=== PATIENT | male | born 1945 | race Caucasian/White ===

== ENCOUNTER 2020-02-22 09:50 | Outpatient (CLI) | payer MEDICARE, OTHER, SELFPAY ==
--- NOTE | 2020-02-22 10:02 | CT_ITS ---
WS: [id number] CT ABDOMEN PELVIS TECHNIQUE: Contrast-enhanced CT of the abdomen and pelvis with coronal and sagittal reformatted image s. CLINICAL INFORMATION: ABDOMINAL PAIN, DIARRHEA, CONSTIPATION COMPARISON: None. DLP: 1247.[address] scans at [facility] use at least one of these dose optimization techniques: automat ed exposure control; mA and/or kV adjustment per patient size (includes targeted exams where dose is matched to clinical indication); or iterative reconstruction. FINDINGS: Diffuse fatty infiltration of the liver. Normal portal vein and splenic vein. Normal gallbladder. Nor mal splenic enhancement. Normal GE junction. Lung bases are well aerated. Pancreas is normal in appea serjio. No intrahepatic biliary ductal dilatation. Normal caliber abdominal aorta. Mild aortic calcifi cation. Adrenal glands are normal. Bilateral renal cortical atrophy. No hydronephrosis. Left renal cyst measu ring 2.1cm. No obstructing renal or ureteral calculi. Mild sigmoid constipation. Normal caliber small and large bowel. No evidence of small or large bowel obstruction. Fat-containing left inguinal hernia. Prostate brachytherapy seeds. No free fluid in the abdomen or pelvis. No periaortic or retroperitoneal lymphadenopathy. Disc space narrowing L4-5 and L 5-S1 vacuum disc phenomenon. CT/CT abdomen pelvis w con* [id number] IMPRESSION: 1. Prostate brachytherapy seeds. 2. Mild constipation in the sigmoid colon. Small and large bowel are otherwise unremarkable in appearance. No evidence of small or large bowel obstruction.0 3. Diffuse fatty infiltration of the liver. Normal gallbladder. 4. Bilateral renal cortical atrophy. Left renal cyst measuring 2.1 cm. 5. Normal caliber abdominal aorta. 6. No abdominal or pelvic lymphadenopathy. 7. Fat-containing left inguinal hernia.
[2020-02-22] MEDS: iohexol 300 mg/mL 50 mL Btl PO (11:07)
[2020-02-22 11:33] LABS: Blood Urea Nitrogen 17 mg/dL (8-23)
[2020-02-22] MEDS: iodixanol 320 mg/mL 100mL Btl IV (11:40)
== END 2020-02-22 09:51 | disposition home or self-care (01) ==
LOC: RADWPI 09:59
PROVIDERS: Family Provider Electrodiagnostic Medicine; PCP Electrodiagnostic Medicine; Visit Provider Electrodiagnostic Medicine
DX: R10.9 Unspecified abdominal pain (principal); K52.9 Noninfective gastroenteritis and colitis, unspecified; K59.00 Constipation, unspecified; K76.0 Fatty (change of) liver, not elsewhere classified; N26.1 Atrophy of kidney (terminal); N28.1 Cyst of kidney, acquired; K40.90 Unilateral inguinal hernia, without obstruction or gangrene, not specified as recurrent
CPT/HCPCS: 74177; 82565; 84520; Q9967

== ENCOUNTER 2020-02-29 04:01 | Emergency (ER) | payer MEDICARE, OTHER, SELFPAY ==
[2020-02-29 04:12] VITALS: BP 168/98; PULSE 89; RESP 22; TEMP 36.5; O2SAT 97; BMI 29.2
--- NOTE | 2020-02-29 04:15 | W.ED.GENADLT ---
HPI - General Adult General: Chief complaint: General Medical Stated complaint: THROAT SWELLING Time Seen by Provider: 02/29/20 04:10 History of Present Illness: HPI narrative: Mr. Gutierrez is a very nice 74-year-old male comes in with painful difficulty swallowing. His symptoms have been present since last night. He states he has had a similar symptoms in the past and after he was given some IV Benadryl his symptoms improved greatly. The patient denies any fevers or chills. He denies any other complaints at this time. Associated symptoms: Deny chest pain, confusion, diaphoresis, dyspnea, headache(s), malaise, nausea, rash, palpitations, syncope or vomiting Review of Systems General: Reports: other (negative unless marked) Const: Denies: fever, chills, body aches, fatigue, malaise or diaphoresis Eyes: Denies: change in vision or blurry vision ENMT: Denies: hoarseness, ear pain, ear discharge, Change in hearing or nasal discharge Card: Denies: chest pain, palpitations, irregular heart rhythm, syncope, pre-syncope, shortness of breath on exertion or shortness of breath when lying down Resp: Denies: shortness of breath, productive cough, non-productive cough, wheezing, coughing up blood or chest congestion GI: Denies: abdominal pain, nausea, vomiting, vomiting blood, coffee grounds in vomit, diarrhea, constipation, cramping, blood in stool or black tarry stool : Denies: flank pain, difficulty urinating, painful urination, urinary frequency, urinary urgency, decreased urine ouput, urinary incontinence or blood in urine Musc: Denies: neck pain, back pain, extremity pain, extremity swelling, joint pain, joint swelling, joint warmth or joint stiffness Skin/Breast: Denies: rash, skin tenderness or yellow skin Neuro: Denies: headache, numbness in extremities, weakness in extremities, changes in sensation, lack of coordination, difficulty walking, dizziness, vertigo or confusion Endo: Denies: excessive thirst, tired all the time, cold intolerance, excessive sweating, flushing or hot flashes Tito/Lymph: Denies: easy bruising, easy bleeding, petechiae or enlarged lymph nodes All/Imm: Denies: hives, throat swelling, tongue swelling, facial swelling or acute wheezing PFSH ED PFSH: Social History Smoking and tobacco status: former smoker Physical Exam Const: COMMON NORMALS: no apparent distress, oriented x3, no limitations, healthy appearing and well nourished EXAM LIMITATIONS: no altered mental status GENERAL APPEARANCE: cooperative, well kempt and well developed ORIENTATION/CONSCIOUSNESS: Yes awake HENMT: COMMON NORMALS: normocephalic, head/scalp atraumatic, hearing grossly normal bilaterally, external ears normal, EAC's normal, external nose normal and moist oral mucous membranes HEAD & SCALP: normal to inspection, normocephalic and atraumatic FACE & SINUS: normal facial exam and face symmetric NOSE: external nose normal and nares normal EXTERNAL EAR: Yes external ears normal EXTERNAL AUDITORY CANAL: EAC's normal MOUTH: tongue normal and other (Uvular edema?mild) Eye: COMMON NORMALS: PERRL, EOMs intact bilaterally, conjunctivae normal and no scleral icterus GENERAL EYE: normal appearance of both eyes and normal light reflex CONJUNCTIVA: Yes conjunctivae normal SCLERA: sclerae normal CORNEA: Yes corneas normal PUPIL: Yes PERRL DIRECT OPHTHALMOSCOPY: Yes normal light reflex Neck/C-Spine: COMMON NORMALS: full ROM, no lymphadenopathy, supple, no meningeal signs and no JVD GENERAL: Yes normal visual inspection and Yes trachea midline CERVICAL SPINE: Yes cervical ROM normal Chest: COMMONS NORMALS: inspection of chest normal and palpation of chest normal Resp: COMMON NORMALS: normal respiratory effort, no retractions, no use of accessory muscles and clear to auscultation bilaterally EFFORT & INSPECTION: Yes able to speak in complete sentences AUSCULTATION: clear to auscultation bilaterally Cardio: COMMON NORMALS: no JVD, regular rate, regular rhythm, S1 normal heart sound, S2 normal heart sound, no gallops, no clicks, no murmurs and no rub JUGULAR VENOUS DISTENTION: no JVD RATE: regular rate RHYTHM: regular rhythm HEART SOUNDS: S1 normal and S2 normal GI: COMMON NORMALS: soft to palpation, non-tender, no hepatosplenomegaly and no masses INSPECTION: Yes normal to inspection PALPATION: Yes soft and Yes no hepatosplenomegaly : COMMON NORMALS: Yes no CVA tenderness BLADDER/KIDNEY EXAM: Yes no CVA tenderness Back/Pelvis: COMMON NORMALS: no CVA tenderness, thoracic and lumbar spine normal to inspection, no thoracic nor lumbar tenderness and thoraco-lumbar ROM normal Extremity: COMMON NORMALS: normal to inspection, full ROM, normal capillary refill, no joint enlargement, no clubbing, cyanosis or edema and no calf tenderness Neuro: COMMON NORMALS: oriented x3, CN's II-XII intact bilaterally, moves all extremities, no focal motor deficits and no sensory deficits noted MENINGEAL SIGNS: Yes no meningeal signs Psych: COMMON NORMALS: mental status grossly normal, thought process normal, cooperative, affect normal, speech normal and activity/motor behavior normal APPEARANCE: Yes well kempt SPEECH: Yes normal speech THOUGHT PROCESS: normal thought process Skin: COMMON NORMALS: no rashes or lesions noted, skin turgor normal, no jaundice, no petechiae and no mottling GENERAL SKIN EXAM: no rashes or lesions noted and turgor normal Course ED course: 512 -patient feels as though his symptoms have resolved with IV medications. He states he has no more difficulty swallowing or pain in his throat. Vital Signs: Vital signs: Vital Signs Temperature 97.7 F 02/29/20 04:12 Pulse Rate 89 02/29/20 04:12 Respiratory Rate 22 H 02/29/20 04:12 Blood Pressure 168/98 02/29/20 04:12 Pulse Oximetry 97 02/29/20 04:12 MDM - General Adult MDM Narrative: Medical decision making narrative: Patient is markedly improved after IV Benadryl, Pepcid and Solu-Medrol. He is asking to go home. His potassium is low for an unknown reason. I will replace IV and p.o. and have him return in 24 hours for recheck. I will also check his magnesium while here. Lab Data: Labs: Lab Results 02/29/20 Range/Units 04:30 Sodium 134 L (136-145) mmol/L Potassium 2.8 L* (3.5-5.1) mmol/L Chloride 91 L (98-107) mmol/L Carbon Dioxide 27 (22-29) mmol/L Anion Gap 18.8 (5-19) BUN 14 (8-23) mg/dL Creatinine 1.1 (0.7-1.2) mg/dL Glucose 101 (65-115) mg/dL Calculated Osmolal ity 274 L (285-295) mOsm/k g Calcium 9.8 (8.5-10.5) mg/dL Total Bilirubin 0.3 (0.15-1.2) mg/dL AST 33 (0-40) U/L ALT 40 (0-41) U/L Alkaline Phosphata se 87 (40-130) IU/L Total Protein 7.6 (6.6-8.7) g/dL Albumin 4.6 (3.5-5.2) g/dL Globulin 3.0 (1.3-4.6) g/dL Discharge Plan Discharge Patient Disposition: Home, Self-Care Clinical Impression: Uvular edema, Acute hypokalemia Condition: Stable Prescriptions: New prednisone 10 mg tablets,dose pack See Rx Instructions .ROUTE .COMPLEX Qty: 21 RF: 0 Augmentin 875-125 mg tablet 1 tab PO Q12H Qty: 20 RF: 0 Discharge Orders: Discharge Order (Routine); Ordered 02/29/20 Ordered By: Stephanie Padilla Referrals: Eliot Hou DO [Primary Care Provider] - 1-3 days Discharge Diet: Advance as tolerated Discharge Activity: Increase activity as tolerated Patient Instructions: Hypokalemia (ED), Anaphylaxis (ED), Uvulitis (ED) Activity Restrictions/Additional Instructions: Please return to the ER immediately for any of the signs or symptoms listed on your discharge instruction sheets, worsening/changing of your symptoms, you are not getting better as quickly as expected, or for ANY other cause or concerns. Return to the ER for increased swelling of the throat, difficulty swallowing, vomiting, hives, or for any other cause for concern. Be certain to take Benadryl 25 to 50 mg every 6 hours for the next 3 days and Pepcid 40 mg every 12 hours for the next 3 days. Return to the ER in 24 hours for recheck of your potassium. Coding Level of Care Code ED Electronic Masking System Operator for Viky Keith
[2020-02-29] MEDS: famotidine 20 mg/2 mL INJ 40 MG IVP (04:49)
[2020-02-29] MEDS: diphenhydrAMINE 50 mg/mL SDV 1mL IVP (04:49)
[2020-02-29 04:58] LABS: Basophils % 0.4 %; Eosinophils # 0.5 10^3/uL (0.0-0.8); Eosinophils % 7.5 %; Hematocrit 37.4 % (42.0-52.0); Hemoglobin 13.1 g/dL (11.7-16.6); Lymphocytes # 1.1 10^3/uL (0.8-4.8); Lymphocytes % 16.1 %; Mean Corpuscular Hemoglobin 31.6 pg (28.0-34.0); Mean Corpuscular Volume 90.1 fL (80-94); Monocytes # 0.6 10^3/uL (0.2-0.9); Monocytes % 9.2 %; Neutrophils # 4.6 10^3/uL (1.8-7.7); Neutrophils % 66.4 %; Nucleated Red Blood Cells % 0 %; Platelet Count 366 10^3/cmm (130-400); Red Blood Count 4.15 10^6/uL (4.1-5.3); Red Cell Distribution Width 12.6 % (12.1-15.1)
[2020-02-29 05:14] LABS: Alanine Aminotransferase 40 U/L (0-41); Albumin Level 4.6 g/dL (3.5-5.2); Alkaline Phosphatase 87 IU/L (40-130); Anion Gap 18.8 (5-19); Aspartate Amino Transferase 33 U/L (0-40); Blood Urea Nitrogen 14 mg/dL (8-23); Calcium 9.8 mg/dL (8.5-10.5); Carbon Dioxide 27 mmol/L (22-29); Chloride 91 mmol/L (98-107); Glucose 101 mg/dL (65-115); Osmolality Calculated 274 mOsm/kg (285-295); Sodium 134 mmol/L (136-145); Total Bilirubin 0.3 mg/dL (0.15-1.2); Total Protein 7.6 g/dL (6.6-8.7)
[2020-02-29 05:47] LABS: Potassium 2.8 mmol/L (3.5-5.1)
--- NOTE | 2020-02-29 05:48 | PC.NURSE ---
Lab called critical potassium of 2.8, notified Dr. Padilla
[2020-02-29] MEDS: predniSONE 20 mg Tablet 60 MG PO (05:57)
[2020-02-29] MEDS: amoxicillin-clav 875-125 mg Tablet 1 TAB PO (05:59)
[2020-02-29] MEDS: potassium chloride oral liq 20 mEq/15 mL UDC 40 MEQ PO (06:15)
[2020-02-29] MEDS: sodium chloride 0.9% 1,000 ML 100 ML IV (06:16)
[2020-02-29 06:24] LABS: Slide Review Slide Review Perform
[2020-02-29 06:52] LABS: Magnesium 1.3 mg/dL (1.7-2.3)
[2020-02-29 07:36] VITALS: BP 172/93; PULSE 110; O2SAT 96
[2020-02-29 08:19] VITALS: BP 114/68; PULSE 91; O2SAT 95
== END 2020-02-29 08:19 | disposition home or self-care (01) ==
PROVIDERS: Emergency Provider Emergency Medicine; Family Provider Electrodiagnostic Medicine; PCP Electrodiagnostic Medicine
DX: R60.9 Edema, unspecified (principal); E87.6 Hypokalemia; Z87.891 Personal history of nicotine dependence
CPT/HCPCS: 12345; 80053; 83735; 85025; 96365; 96366; 96368; 96375; 99283; J1200; J2930; J3475; J3480; J3490; J7030; J7512

== ENCOUNTER 2020-03-01 06:15 | Emergency (ER) | payer MEDICARE, OTHER, SELFPAY ==
[2020-03-01 06:19] VITALS: BP 145/89; PULSE 111; RESP 16; TEMP 36.3; O2SAT 98; BMI 29.2
--- NOTE | 2020-03-01 06:27 | W.ED.RECABL ---
HPI - Recheck/Abnormal Lab/Rx General: Chief Complaint: Recheck/Abnormal Lab/Rx Stated Complaint: RECHECK Time Seen by Provider: 03/01/20 06:26 History of Present Illness: HPI narrative: 74-year-old male presents emergency room for recheck. He was here yesterday had a low potassium and magnesium. He also had some kind of allergic reaction he was treated yesterday and started on prednisone. He was instructed to return this morning for repeat potassium and magnesium. States he feels completely fine is no difficulty swallowing or breathing no other problems. He denies any symptoms at this time. complaint: abnormal lab Initial visit (ago): hour(s) (12) Returns today for: other Symptoms since prior visit: no new symptoms Context: planned re-check Associated symptoms: none Treatments prior to arrival: other (Supplements given) Review of Systems Const: Denies: fever, chills, body aches, change in appetite, fatigue or malaise ENMT: Denies: throat pain, ear pain, nasal discharge or nasal congestion Card: Denies: chest pain, edema, shortness of breath on exertion or shortness of breath when lying down Resp: Denies: shortness of breath, productive cough or non-productive cough GI: Denies: abdominal pain, nausea, vomiting, vomiting blood, coffee grounds in vomit, diarrhea, constipation, bloating, blood in stool or black tarry stool : Denies: flank pain, painful urination, urinary frequency or urinary urgency Skin/Breast: Denies: rash or itching PFSH ED PFSH: Social History Smoking and tobacco status: former smoker Physical Exam Const: COMMON NORMALS: no apparent distress GENERAL APPEARANCE: cooperative and comfortable ORIENTATION/CONSCIOUSNESS: Yes awake, Yes oriented to person, Yes oriented to place and Yes oriented to time HENMT: COMMON NORMALS: normocephalic, head/scalp atraumatic, hearing grossly normal bilaterally, external ears normal, EAC's normal and nasal mucous membranes and turbinates normal HEAD & SCALP: normocephalic and atraumatic NOSE: nasal mucous membranes and turbinates normal EXTERNAL EAR: Yes external ears normal EXTERNAL AUDITORY CANAL: EAC's normal Eye: COMMON NORMALS: PERRL, EOMs intact bilaterally, conjunctivae normal and no scleral icterus CONJUNCTIVA: Yes conjunctivae normal PUPIL: Yes PERRL Neck/C-Spine: COMMON NORMALS: full ROM, no lymphadenopathy, supple and no JVD Lymph: LYMPHATIC: no lymphadenopathy noted and no lymphedema noted Resp: COMMON NORMALS: normal respiratory effort, no retractions, no use of accessory muscles and clear to auscultation bilaterally AUSCULTATION: clear to auscultation bilaterally Cardio: COMMON NORMALS: no JVD, regular rate, regular rhythm and no murmurs RATE: regular rate RHYTHM: regular rhythm GI: COMMON NORMALS: soft to palpation and no hepatosplenomegaly AUSCULTATION: Yes normoactive bowel sounds PALPATION: Yes soft, No tender, No guarding and Yes no hepatosplenomegaly Extremity: COMMON NORMALS: normal to inspection, normal capillary refill, no clubbing, cyanosis or edema, no calf tenderness and no pedal edema Neuro: SENSORIUM/ORIENTATION: Yes oriented to person, Yes oriented to place and Yes oriented to time Skin: COMMON NORMALS: no rashes or lesions noted GENERAL SKIN EXAM: no rashes or lesions noted Course Vital Signs: Vital signs: Vital Signs Temperature 97.4 F L 03/01/20 06:19 Pulse Rate 88 03/01/20 06:53 Respiratory Rate 16 03/01/20 06:53 Blood Pressure 145/89 03/01/20 06:19 Pulse Oximetry 98 03/01/20 06:19 MDM - Recheck/Abnormal Lab/Rx MDM Narrative: Medical decision making narrative: Patient has no symptoms whatsoever at this point. He just like to go he has some other issues he wants to attend to personal errands. We have drawn his blood and will contact him with the results he has appointment with his PCP later today as well. Lab Data: Labs: Lab Results 03/01/20 Range/Units 06:35 Sodium 132 L (136-145) mmol/L Potassium 3.6 (3.5-5.1) mmol/L Chloride 89 L (98-107) mmol/L Carbon Dioxide 23 (22-29) mmol/L Anion Gap 23.6 H (5-19) BUN 16 (8-23) mg/dL Creatinine 1.1 (0.7-1.2) mg/dL Glucose 270 H (65-115) mg/dL Calculated Osmolal ity 280 L (285-295) mOsm/k g Calcium 9.6 (8.5-10.5) mg/dL Magnesium 1.6 L (1.7-2.3) mg/dL Discharge Plan Discharge Patient Disposition: Home, Self-Care Clinical Impression: Acute hypokalemia, Hypomagnesemia Condition: Stable Prescriptions: No Action prednisone 10 mg tablets,dose pack See Rx Instructions .ROUTE .COMPLEX Qty: 21 RF: 0 Augmentin 875-125 mg tablet 1 tab PO Q12H Qty: 20 RF: 0 Referrals: Eliot Hou, [Primary Care Provider] - Activity Restrictions/Additional Instructions: As per your request we will discharge you from the emergency room and will contact you with the blood results once they are completed. I will also forward them to Dr. Hou. Discharge Date/Time: 03/01/20 06:54 Coding Level of Care Code ED [employer] Source Operations Officer for [employer]y Fwd Exam Comprehensive
[2020-03-01 06:53] VITALS: PULSE 88; RESP 16
[2020-03-01 07:14] LABS: Anion Gap 23.6 (5-19); Blood Urea Nitrogen 16 mg/dL (8-23); Calcium 9.6 mg/dL (8.5-10.5); Carbon Dioxide 23 mmol/L (22-29); Chloride 89 mmol/L (98-107); Glucose 270 mg/dL (65-115); Magnesium 1.6 mg/dL (1.7-2.3); Osmolality Calculated 280 mOsm/kg (285-295); Potassium 3.6 mmol/L (3.5-5.1); Sodium 132 mmol/L (136-145)
== END 2020-03-01 06:54 | disposition home or self-care (01) ==
PROVIDERS: Emergency Provider Family Medicine; Family Provider Electrodiagnostic Medicine; PCP Electrodiagnostic Medicine
DX: E87.6 Hypokalemia (principal); E83.42 Hypomagnesemia; Z87.891 Personal history of nicotine dependence
CPT/HCPCS: 12345; 36415; 80048; 83735; 99281; 99282

== ENCOUNTER 2020-04-04 11:08 | Outpatient (CLI) | payer MEDICARE, OTHER, SELFPAY ==
--- NOTE | 2020-04-04 11:58 | XR_ITS ---
WS: [id number] SHOULDER RIGHT TECHNIQUE: 3 views of the right shoulder CLINICAL INFORMATION: RIGHT SHOULDER PAIN COMPARISON: None. FINDINGS: Hypertrophic acromioclavicular joint. Normal glenohumeral joint. Acromion is normal in appearance. No rmal glenoid. No evidence of acute fracture dislocation. XR/XR shoulder RT min 2V* [id number] IMPRESSION: No acute right shoulder findings.
--- NOTE | 2020-04-04 11:58 | XR_ITS ---
WS: [id number] HIP WITH PELVIS RIGHT TECHNIQUE: 3 views of the right hip with pelvis CLINICAL INFORMATION: HIP PAIN, RIGHT COMPARISON: None. FINDINGS: Moderate degenerative arthritis right hip with joint space narrowing. No acute fractures. Normal femo ral neck. Pelvic phleboliths. Vascular calcification. Prostate brachytherapy seeds. XR/XR hip RT 2-3V wo/w pel* [id number] IMPRESSION: Moderate degenerative arthritis right hip. No acute fractures.
== END 2020-04-04 11:09 | disposition home or self-care (01) ==
LOC: RADWPI 11:14
PROVIDERS: Family Provider Electrodiagnostic Medicine; PCP Electrodiagnostic Medicine; Visit Provider Electrodiagnostic Medicine
DX: M25.511 Pain in right shoulder; M16.11 Unilateral primary osteoarthritis, right hip
CPT/HCPCS: 73030; 73502

== ENCOUNTER 2020-10-13 09:18 | Outpatient (CLI) | payer MEDICARE, OTHER, SELFPAY ==
--- NOTE | 2020-10-13 09:30 | XR_ITS ---
WS: [id number] PELVIS AND RIGHT HIP HISTORY: CHRONIC R HIP PAIN COMPARISON: 04/04/2020 Right hip: No acute fracture or dislocation. Moderate to severe narrowing of the RIGHT hip joint. Irr egularity along the acetabular surface and also the femoral head surface. 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 No significant progression or change since the prior study. Similar findings were noted on the LEFT hip joint. Enthesopathy at the iliac crest. Prostate seed implants are present. XR/XR hip RT 2-3V wo/w pel* [id number] IMPRESSION: 1. No hip fracture. 2. 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
== END 2020-10-13 09:19 | disposition home or self-care (01) ==
PROVIDERS: PCP Electrodiagnostic Medicine; Visit Provider Electrodiagnostic Medicine
DX: G89.29 Other chronic pain (principal); M13.851 Other specified arthritis, right hip; M25.851 Other specified joint disorders, right hip
CPT/HCPCS: 73502

== ENCOUNTER 2021-09-20 22:30 | Emergency (ER) | payer MEDICARE, OTHER, SELFPAY ==
[2021-09-20 22:37] VITALS: BP 164/91; PULSE 87; RESP 19; TEMP 36.6; O2SAT 97; BMI 29.2
--- NOTE | 2021-09-20 22:54 | W.ED.ABDPA2 ---
HPI - Abdominal Pain General: Chief Complaint: Abdominal Pain Stated Complaint: ABD Pain Time Seen by Provider: 09/20/21 22:34 Source: patient Mode of arrival: ambulatory Limitations: no limitations History of Present Illness: HPI narrative: 75-year-old male states he ate a very large lunch today for Thanksgiving around noon or 1230 states has been having abdominal discomfort since then. Patient states the pain is a burning pain and was much worse with laying down and states pain is currently 4 out of 10 denies any chest pain denies any vomiting diarrhea denies any fever states he does have a history of gastritis he supposed to take omeprazole daily but does not he states he only takes it when he remembers it. Associated Symptoms: Denies chills, dysuria and fever(s) Review of Systems Const: Denies: fever(s), chills, body aches or change in appetite Eyes: Denies: blurry vision or eye discomfort ENMT: Denies: throat pain or dental pain Card: Denies: chest pain Resp: Denies: dyspnea GI: Reports: abdominal pain : Denies: dysuria Musc: Denies: neck pain or back pain Skin/Breast: Denies: rash Neuro: Denies: headache(s) Psych: Denies: depression Tito/Lymph: Denies: easy bruising All/Imm: Denies: urticaria PFSH ED PFSH: Medical History BPH (benign prostatic hyperplasia) Diabetes Dyslipidemia History of anal fissures History of cataract Hypertension Prostate cancer PUD (peptic ulcer disease) Surgical History History of colonoscopy with polypectomy 07/2019 History of open reduction and internal fixation (ORIF) procedure right knee Family History Other CAD (coronary artery disease) Cancer Dementia Diabetes Denies family history of Psychiatric illness Chronic kidney disease (CKD) Lung disease Stroke Physical Exam Const: COMMON NORMALS: no acute distress, patient oriented x3 and healthy appearing HENMT: COMMON NORMALS: normocephalic and atraumatic HEAD & SCALP: normocephalic and atraumatic Eye: COMMON NORMALS: Equal, round and reactive pupils present and EOMs intact bilaterally PUPIL: Yes Equal, round and reactive pupils present Neck/C-Spine: COMMON NORMALS: full ROM and supple Chest: COMMONS NORMALS: normal inspection of the chest and normal palpation of entire chest wall Resp: COMMON NORMALS: normal respiratory effort, No retractions, No use of accessory muscles and clear to auscultation bilaterally AUSCULTATION: clear to auscultation bilaterally Cardio: COMMON NORMALS: regular rate, regular rhythm and No murmurs present (Cardio) RATE: regular rate RHYTHM: regular rhythm GI: COMMON NORMALS: Normal to inspection, nondistended, normoactive bowel sounds present, Soft to palpation, non-tender and no masses PALPATION: Yes Soft to palpation Extremity: COMMON NORMALS: normal to inspection and full ROM Neuro: COMMON NORMALS: patient oriented x3, moves all extremities and no focal motor deficits Psych: COMMON NORMALS: mental status grossly normal, Normal thought process present and cooperative THOUGHT PROCESS: Normal thought process present Skin: COMMON NORMALS: no rashes or lesions noted and no wounds GENERAL SKIN EXAM: no rashes or lesions noted Course Vital Signs: Vital signs: Vital Signs Temperature 98 F 09/20/21 22:37 Pulse Rate 87 09/20/21 22:37 Respiratory Rate 19 H 09/20/21 22:37 Blood Pressure 147/92 09/21/21 00:02 Pulse Oximetry 97 09/20/21 22:37 MDM - Abdominal Pain MDM Narrative: Medical decision making narrative: ThesePatient presents here with abdominal pain likely gastritis troponins blood work and CT are all normal he is to take his Prilosec is to follow-up with PCP and return if worsening he understands agrees the plan. Lab Data: Labs: Lab Results 09/20/21 09/20/21 09/20/21 22:56 22:56 22:56 WBC 9.4 10^3/uL 10^3/ uL (4.0-10.0) RBC 4.24 10^6/uL 10^6 /uL (4.1-5.3) Hgb 13.6 g/dL g/dL (11.7-16.6) Hct 39.4 % L % (42.0-52.0) MCV 92.9 fl fl (80-94) MCH 32.1 pg pg (28.0-34.0) MCHC 34.5 g/dL g/dL (30.0-36.0) RDW 13.5 % % (12.1-15.1) Plt Count 346 10^3/cmm 10^3 /cmm (130-400) MPV 9.5 fL fL (7.4-10.4) Neut % (Auto) 66.6 % % Lymph % (Auto) 20.0 % % [place] % (Auto) 9.0 % % Eos % (Auto) 3.8 % % Baso % (Auto) 0.2 % % Neut # (Auto) 6.25 10^3/uL 10^3 /uL (1.8-7.7) Lymph # (Auto) 1.9 10^3/uL 10^3/ uL (0.8-4.8) [place] # (Auto) 0.9 10^3/uL 10^3/ uL (0.2-0.9) Eos # (Auto) 0.4 10^3/uL 10^3/ uL (0.0-0.8) Baso # (Auto) 0.0 10^3/uL 10^3/ uL (0.0-0.1) Nucleated RBC % (a uto) 0 % % Nucleated RBCs # 0.0 /100WBC /100W BC Sodium 136 mmol/L mmol/L (136-145) Potassium 3.2 mmol/L L mmol /L (3.5-5.1) Chloride 95 mmol/L L mmol/ L (98-107) Carbon Dioxide 26 mmol/L mmol/L (22-29) Anion Gap 18.2 (5-19) BUN 19 mg/dL mg/dL (8-23) Creatinine 1.2 mg/dL mg/dL (0.7-1.2) GFR Calculation Not Reportable Glucose 167 mg/dL H mg/dL (65-115) Calculated Osmolal ity 288 mOsm/kg mOsm/ kg (285-295) Lactate Calcium 9.1 mg/dL mg/dL (8.5-10.5) Total Bilirubin 0.3 mg/dL mg/dL (0.15-1.2) AST 15 U/L U/L (0-40) ALT 19 U/L U/L (0-41) Alkaline Phosphata se 94 IU/L IU/L (40-130) Troponin T Baselin e 20 ng/L H ng/L (0-15) Troponin T 120 Min [place] Troponin T Total Protein 7.2 g/dL g/dL (6.6-8.7) Albumin 4.3 g/dL g/dL (3.5-5.2) Globulin 2.9 g/dL g/dL (1.3-4.6) Lipase 48 U/L U/L (13-60) 09/20/21 09/21/21 23:21 00:36 WBC RBC Hgb Hct MCV MCH MCHC RDW Plt Count MPV Neut % (Auto) Lymph % (Auto) [place] % (Auto) Eos % (Auto) Baso % (Auto) Neut # (Auto) Lymph # (Auto) [place] # (Auto) Eos # (Auto) Baso # (Auto) Nucleated RBC % (a uto) Nucleated RBCs # Sodium Potassium Chloride Carbon Dioxide Anion Gap BUN Creatinine GFR Calculation Glucose Calculated Osmolal ity Lactate 1.0 mmol/L mmol/L (0.5-2.2) Calcium Total Bilirubin AST ALT Alkaline Phosphata se Troponin T Baselin e Troponin T 120 Min [place] 18.56 ng/L H ng/L (0-15) [place] Troponin T -1.44 ABS# L ABS# (0-10) Total Protein Albumin Globulin Lipase Imaging Data ^: CT Abd/Pel: Attestation: I personally reviewed and interpreted this imaging study as follows: Radiologist's impression: [address] [address] [address] Scan Report Signed Patient: Jevon Gutierrez Unit #: [id number] : 1945 Age/Sex: 75 / M ADM Date: 09/20/21 Loc: ER Room/Bed: Attending Dr: Ordering Provider/Ordering MD: Rhea Sheppard MD Date of Service: 09/21/21 Procedure(s): CT abdomen pelvis w con* [id number] Accession Number(s): [id number] Report Number: [id number] PROCEDURE INFORMATION: Exam: CT Abdomen And Pelvis With Contrast Exam date and time: 09/21/2021 12:29 AM Age: 75 years old Clinical indication: Abdominal pain; Prior surgery; Surgery type: Prostate seeds. ; Patient HX: Epigastric pain. TECHNIQUE: Imaging protocol: Computed tomography of the abdomen and pelvis with contrast. Radiation optimization: All CT scans at this facility use at least one of these dose optimization techniques: automated exposure control; mA and/or kV adjustment per patient size (includes targeted exams where dose is matched to clinical indication); or iterative reconstruction. Contrast material: OMNI 300; Contrast volume: 95 ml; Contrast route: INTRAVENOUS (IV); COMPARISON: CT abdomen pelvis w con* [id number] 02/22/2020 11:37 AM RADIATION DOSE METRICS: Total DLP (mGy-cm): 1825.7 FINDINGS: Liver: Hepatic steatosis. Gallbladder and bile ducts: Gallbladder appears prominent, ultrasound could further evaluate this. Pancreas: Normal. No ductal dilation. Spleen: Normal. No splenomegaly. Adrenal glands: Normal. No mass. Kidneys and ureters: Left kidney cyst, negative for follow-up advised. Stomach and bowel: Diverticulosis without diverticulitis. Appendix: No evidence of appendicitis. Intraperitoneal space: Unremarkable. No free air. No significant fluid collection. Vasculature: Unremarkable. No abdominal aortic aneurysm. Lymph nodes: Unremarkable. No enlarged lymph nodes. Urinary bladder: Mild urinary bladder wall thickening may reflect chronic outflow obstruction, cystitis may also be a consideration. Reproductive: Radiation treatment seeds in the prostate gland. Bones/joints: Unremarkable. No acute fracture. Soft tissues: Unremarkable. CT/CT abdomen pelvis w con* [id number] IMPRESSION: 1. Negative for acute inflammatory process in the abdomen or pelvis. 2. Hepatic steatosis. 3. Gallbladder appears prominent, ultrasound could further evaluate this. 4. Diverticulosis without diverticulitis. 5. Mild urinary bladder wall thickening may reflect chronic outflow obstruction, cystitis may also be a consideration. 6. Radiation treatment seeds in the prostate gland. 7. Left kidney cyst, negative for follow-up advised. Radiation Dose CTDIVOL = (mGy): DLP = 1825.7 (mGy-cm) Dictated By: Marck Brooks MD Signed By: Marck Brooks MD Signed Date/Time: 09/21/210 DD/ 0029 EKG Data ^: EKG 1: Attestation: I personally reviewed and interpreted this EKG as follows: EKG interpretation date: 09/20/21 EKG interpretation time: 23:48 Interpretation: nsr hr [address] or t wave abnormalities qrs 102 qtc 414 Discharge Plan Discharge Patient Disposition: Home Clinical Impression: Abdominal pain Qualifiers: Abdominal location: epigastric Qualified Code(s): R10.13 - Epigastric pain Condition: Stable Prescriptions: No Action amlodipine 10 mg tablet 10 mg PO DAILY RF: 0 atorvastatin 40 mg tablet 40 mg PO DAILY RF: 0 hydrochlorothiazide 12.5 mg tablet 12.5 mg PO DAILY RF: 0 glimepiride 1 mg tablet 1 mg PO DAILY RF: 0 carvedilol 6.25 mg tablet 6.25 mg PO BID RF: 0 tamsulosin 0.4 mg capsule 0.4 mg PO DAILY RF: 0 omeprazole 40 mg capsule,delayed release(DR/EC) 40 mg PO DAILY RF: 0 ipratropium bromide 0.02 % solution 2.5 ml inhalation Q6H PRNRF: 0 Discharge Orders: Discharge ED (Routine); Ordered 09/21/21 Ordered By: Rhea Sheppard Referrals: Eliot Hou, [Primary Care Provider] - 1-3 days Discharge Diet: Advance as tolerated Discharge Activity: Resume usual activity Patient Instructions: Abdominal Pain (ED) Coding Level of Care Code ED Bindery Machine Feeder Offbearer for Chg Fwd Exam Comprehensive
[2021-09-20] MEDS: lidocaine 2% viscous 15 ML, aluminum-mag hydrox-simethicon 30 ML, sucralfate oral liq 1 GM PO (23:10)
[2021-09-20] MEDS: ondansetron 2 mg/ML SDV 2 mL 4 MG IVP (23:11)
[2021-09-20 23:16] LABS: Basophils % 0.2 %; Eosinophils # 0.4 10^3/uL (0.0-0.8); Eosinophils % 3.8 %; Hematocrit 39.4 % (42.0-52.0); Hemoglobin 13.6 g/dL (11.7-16.6); Lymphocytes # 1.9 10^3/uL (0.8-4.8); Mean Corpuscular HGB Conc 34.5 g/dL (30.0-36.0); Mean Corpuscular Hemoglobin 32.1 pg (28.0-34.0); Mean Corpuscular Volume 92.9 fl (80-94); Mean Platelet Volume 9.5 fL (7.4-10.4); Monocytes # 0.9 10^3/uL (0.2-0.9); Neutrophils # 6.25 10^3/uL (1.8-7.7); Neutrophils % 66.6 %; Nucleated Red Blood Cells % 0 %; Platelet Count 346 10^3/cmm (130-400); Red Blood Count 4.24 10^6/uL (4.1-5.3); Red Cell Distribution Width 13.5 % (12.1-15.1); White Blood Count 9.4 10^3/uL (4.0-10.0)
[2021-09-20 23:42] LABS: Alanine Aminotransferase 19 U/L (0-41); Albumin Level 4.3 g/dL (3.5-5.2); Alkaline Phosphatase 94 IU/L (40-130); Anion Gap 18.2 (5-19); Aspartate Amino Transferase 15 U/L (0-40); Blood Urea Nitrogen 19 mg/dL (8-23); Calcium 9.1 mg/dL (8.5-10.5); Carbon Dioxide 26 mmol/L (22-29); Chloride 95 mmol/L (98-107); Globulin 2.9 g/dL (1.3-4.6); Glucose 167 mg/dL (65-115); Lipase 48 U/L (13-60); Osmolality Calculated 288 mOsm/kg (285-295); Potassium 3.2 mmol/L (3.5-5.1); Sodium 136 mmol/L (136-145); Total Bilirubin 0.3 mg/dL (0.15-1.2); Total Protein 7.2 g/dL (6.6-8.7)
--- NOTE | 2021-09-20 23:45 | ECG_ITS ---
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
[2021-09-20 23:51] VITALS: BP 158/85
[2021-09-20] MEDS: famotidine 20 mg/2 mL INJ 40 MG IVP (23:52)
[2021-09-21 00:02] VITALS: BP 147/92
[2021-09-21 00:12] LABS: Troponin(5th) Baseline 20 ng/L (0-15)
--- NOTE | 2021-09-21 00:29 | CTR_ITS ---
PROCEDURE INFORMATION: Exam: CT Abdomen And Pelvis With Contrast Exam date and time: 09/21/2021 12:29 AM Age: 75 years old Clinical indication: Abdominal pain; Prior surgery; Surgery type: Prostate seeds. ; Patient HX: Epigastric pain. TECHNIQUE: Imaging protocol: Computed tomography of the abdomen and pelvis with contrast. Radiation optimization: All CT scans at this facility use at least one of these dose optimization techniques: automated exposure control; mA and/or kV adjustment per patient size (includes targeted exams where dose is matched to clinical indication); or iterative reconstruction. Contrast material: OMNI 300; Contrast volume: 95 ml; Contrast route: INTRAVENOUS (IV); COMPARISON: CT abdomen pelvis w con* [id number] 02/22/2020 11:37 AM RADIATION DOSE METRICS: Total DLP (mGy-cm): 1825.7 FINDINGS: Liver: Hepatic steatosis. Gallbladder and bile ducts: Gallbladder appears prominent, ultrasound could further evaluate this. Pancreas: Normal. No ductal dilation. Spleen: Normal. No splenomegaly. Adrenal glands: Normal. No mass. Kidneys and ureters: Left kidney cyst, negative for follow-up advised. Stomach and bowel: Diverticulosis without diverticulitis. Appendix: No evidence of appendicitis. Intraperitoneal space: Unremarkable. No free air. No significant fluid collection. Vasculature: Unremarkable. No abdominal aortic aneurysm. Lymph nodes: Unremarkable. No enlarged lymph nodes. Urinary bladder: Mild urinary bladder wall thickening may reflect chronic outflow obstruction, cystitis may also be a consideration. Reproductive: Radiation treatment seeds in the prostate gland. Bones/joints: Unremarkable. No acute fracture. Soft tissues: Unremarkable. CT/CT abdomen pelvis w con* [id number] IMPRESSION: 1. Negative for acute inflammatory process in the abdomen or pelvis. 2. Hepatic steatosis. 3. Gallbladder appears prominent, ultrasound could further evaluate this. 4. Diverticulosis without diverticulitis. 5. Mild urinary bladder wall thickening may reflect chronic outflow obstruction, cystitis may also be a consideration. 6. Radiation treatment seeds in the prostate gland. 7. Left kidney cyst, negative for follow-up advised. Radiation Dose CTDIVOL = (mGy): DLP = 1825.7 (mGy-cm)
[2021-09-21] MEDS: iohexol 300 mg/mL 100 mL Btl IV (00:51)
[2021-09-21 00:58] LABS: Troponin 5 2HR 18.56 ng/L (0-15)
[2021-09-21 01:03] LABS: Troponin 5 2HR Delta -1.44 ABS# (0-10)
[2021-09-21 01:29] VITALS: BP 169/105; PULSE 80; RESP 16; O2SAT 97
== END 2021-09-21 01:30 | disposition home or self-care (01) ==
PROVIDERS: Emergency Provider Emergency Medicine; PCP Electrodiagnostic Medicine
DX: R10.13 Epigastric pain (principal); E11.9 Type 2 diabetes mellitus without complications; Z79.84 Long term (current) use of oral hypoglycemic drugs; I10 Essential (primary) hypertension
CPT/HCPCS: 74177; 80053; 83605; 83690; 84484; 85025; 93005; 96374; 96375; 99284; J2405; J3490; Q9967

== ENCOUNTER 2022-01-04 00:04 | Emergency (ER) | payer MEDICARE, OTHER, SELFPAY ==
[2022-01-04 00:13] VITALS: BP 156/81; PULSE 93; RESP 18; TEMP 36.5; BMI 29.8
--- NOTE | 2022-01-04 00:21 | ED_ITS ---
HPI - Extremity Problem General: Chief complaint: Extremity Injury, Lower Stated complaint: Rt Knee Pain\Cant Walk Time Seen by Provider: 01/04/22 00:19 History of Present Illness: Patient comes in with increasing right knee pain for the last week. Patient reports has a long history of injury to that leg where it has been fractured at least 4 times. Patient reports over the last week he has had had increasing pain to the knee with ambulation. Tonight after supper he he was unable to bear weight on the knee due to the pain and discomfort. Patient is diabetic, has a history of GERD, takes medication for blood pressure. Patient denies any fever or recent injury. Patient did report that he started using a sitting pedal machine in order to keep his leg strength up but started having some right knee discomfort while using the machine. Patient reports he had used it in 2 to 3 weeks but the pain seemed to have exacerbated over that time. Review of Systems General: Reports: 10 or more systems reviewed and unremarkable except in HPI and below Musc: Reports: joint pain (Right knee) PFSH ED PFSH: Medical History BPH (benign prostatic hyperplasia) Diabetes Dyslipidemia History of anal fissures History of cataract Hypertension Prostate cancer PUD (peptic ulcer disease) Surgical History History of colonoscopy with polypectomy 07/2019 History of open reduction and internal fixation (ORIF) procedure right knee Family History Other CAD (coronary artery disease) Cancer Dementia Diabetes Denies family history of Psychiatric illness Chronic kidney disease (CKD) Lung disease Stroke Physical Exam Const: COMMON NORMALS: alert HENMT: COMMON NORMALS: normocephalic HEAD & SCALP: normocephalic Neck/C-Spine: COMMON NORMALS: full ROM Resp: COMMON NORMALS: normal respiratory effort Cardio: COMMON NORMALS: regular rate and regular rhythm RATE: regular rate RHYTHM: regular rhythm Back/Pelvis: COMMON NORMALS: thoracic and lumbar spine normal to inspection Extremity: COMMON NORMALS: no pedal edema RIGHT LOWER EXTREMITY: Yes knee joint (No swelling, no palpable tenderness) Right knee: Yes inspection, Yes palpation, Yes ROM (Decrease flexion and extension) and Yes neurovascular exam Neuro: SENSORIUM/ORIENTATION: Yes alert Course Vital Signs: Vital signs: Vital Signs Temperature 97.7 F 01/04/22 00:13 Pulse Rate 91 01/04/22 01:06 Respiratory Rate 20 H 01/04/22 01:06 Blood Pressure 160/83 01/04/22 01:06 Pulse Oximetry 96 01/04/22 01:06 MDM - Extremity (Nontraumatic) Medical Decision Making Patient comes in today with complaints of right knee pain. Patient reports increasing pain over the last 2 weeks. Patient reports unable to ambulate due to pain tonight. On exam no sign of redness or inflammation to the knee. Patient does have some reduced extension and flexion due to increased pain. Differential diagnosis includes but not limited to tendinitis, osteoarthritis of knee, meniscal injury. X-ray noted intact hardware from a tibial plateau fracture repair. Some degenerative joint disease noted in the extremity. No obvious acute fracture is noted. Radiology will review. Recommended follow-up with orthopedist for further treatment and evaluation. Patient will be trialed on some celecoxib and tramadol for his pain. Patient reported understanding and agreed to plan. 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, right knee Condition: Stable Prescriptions: New Celebrex 100 mg capsule 100 mg PO BID Qty: 20 0RF tramadol 50 mg tablet 50 mg PO Q8H PRN (Reason: pain (scale score 7-10)) Qty: 10 0RF No Action amlodipine 10 mg tablet 10 mg PO DAILY 0RF atorvastatin 40 mg tablet 40 mg PO DAILY 0RF hydrochlorothiazide 12.5 mg tablet 12.5 mg PO DAILY 0RF glimepiride 1 mg tablet 1 mg PO DAILY 0RF carvedilol 6.25 mg tablet 6.25 mg PO BID 0RF Rx Instructions: must administer with a meal/food tamsulosin 0.4 mg capsule 0.4 mg PO DAILY 0RF omeprazole 40 mg capsule,delayed release(DR/EC) 40 mg PO DAILY 0RF ipratropium bromide 0.02 % solution 2.5 ml inhalation Q6H PRN0RF Discharge Orders: Discharge ED (Routine); Ordered 01/04/22 Ordered By: Tirso Wright Referrals: Eliot Hou, DO [Primary Care Provider] - Discharge Diet: Usual diet Discharge Activity: Increase activity as tolerated Patient Instructions: Knee Pain (ED), Opioid Safety Activity Restrictions/Additional Instructions: Use walker for ambulation. Take celecoxib twice daily for pain and inflammation. Use tramadol for breakthrough pain. You may also use arnulfo taminophen, Tylenol, for further pain relief. Follow-up with primary care as needed. Case management will contact you regarding follow-up with orthopedic services. Coding Level of Care Code ED Instructional Technologist for Chg Fwd Exam Detailed
--- NOTE | 2022-01-04 00:22 | XRR_ITS ---
PROCEDURE INFORMATION: Exam: XR Right Knee Exam date and time: 01/04/2022 12:22 AM Age: 76 years old Clinical indication: Knee; Right; Prior surgery; Surgery type: Tibial fixation. ; Patient HX: C/O worsening pain for the last week with increased difficulty bearing weight. TECHNIQUE: Imaging protocol: XR Right knee. Views: 3 views. COMPARISON: No relevant prior studies available. FINDINGS: Bones/joints: There is no acute fracture or dislocation. If symptoms persist, follow-up imaging in several days may be useful to exclude an occult fracture. No other significant acute bone or joint abnormality. Prior surgical fixation of a proximal tibial fracture. Fixation hardware appears relatively unremarkable. Moderate narrowing of the medial and lateral knee joint compartments. Mild chondrocalcinosis involving the medial and lateral menisci. Soft tissues: Mild soft tissue fullness in the suprapatellar region may indicate evidence of joint effusion. Vasculature: Vascular calcifications noted. XR/XR knee RT 3V* [id number] IMPRESSION: 1. No acute fracture or dislocation. 2. Probable small knee joint effusion. 3. Other findings discussed above.
[2022-01-04] MEDS: ketorolac 30 mg/mL INJ IM (01:01)
[2022-01-04 01:06] VITALS: BP 160/83; PULSE 91; RESP 20; O2SAT 96
[2022-01-04 01:15] VITALS: BP 160/83; PULSE 80; RESP 18; O2SAT 95
--- NOTE | 2022-01-07 09:33 | DCPLANNER ---
Addendum entered by Bing Blackwell 01/24/22 09:19: Patient had a follow up appointment scheduled for 01.22.[address] Camejo at ortho - patient did attend appointment. Addendum entered by Bing Blackwell 01/14/22 09:18: Patient has a follow up appointment scheduled for Saturday, January 22, 2022 at 8;[address] Camejo. Clinic will call patient with appointment information. Original Note: product line manager had message to schedule a follow up appointment for patient with ortho. product line manager called the ortho clinic, spoke with Ayesha, gave clinic patients information. product line manager was told that patients information would be printed and reviewed. Clinic will call patient with appointment information.
== END 2022-01-04 01:20 | disposition home or self-care (01) ==
PROVIDERS: Emergency Provider Nurse Practitioner Family; PCP Electrodiagnostic Medicine
DX: M17.31 Unilateral post-traumatic osteoarthritis, right knee (principal); G89.29 Other chronic pain; M25.561 Pain in right knee; E11.9 Type 2 diabetes mellitus without complications; E78.5 Hyperlipidemia, unspecified; I10 Essential (primary) hypertension; Z85.46 Personal history of malignant neoplasm of prostate
CPT/HCPCS: 73562; 96372; 99283; J1885

== ENCOUNTER → 2023-05-13 10:16 | Outpatient (BNVA) | payer MEDICARE, OTHER, SELFPAY | PROVIDERS: PCP Electrodiagnostic Medicine; Visit Provider Nurse Practitioner Family | DX: L57.8 Other skin changes due to chronic exposure to nonionizing radiation (principal); D22.5 Melanocytic nevi of trunk; L57.0 Actinic keratosis; L30.0 Nummular dermatitis; B35.3 Tinea pedis; L81.4 Other melanin hyperpigmentation; L85.3 Xerosis cutis; L21.8 Other seborrheic dermatitis | CPT/HCPCS: 17000; 17003; 99214 ==

== ENCOUNTER → 2023-11-13 10:45 | Outpatient (BNVA) | payer MEDICARE, OTHER, SELFPAY | PROVIDERS: PCP Electrodiagnostic Medicine; Visit Provider Nurse Practitioner Family | DX: L57.0 Actinic keratosis (principal); L30.0 Nummular dermatitis; L21.8 Other seborrheic dermatitis; L57.8 Other skin changes due to chronic exposure to nonionizing radiation; L85.3 Xerosis cutis; D69.2 Other nonthrombocytopenic purpura; L82.1 Other seborrheic keratosis | CPT/HCPCS: 17000; 99214 ==

== ENCOUNTER 2024-04-18 11:10 | Emergency (ER) | payer MEDICARE, OTHER, SELFPAY ==
--- NOTE | 2024-04-18 11:11 | XRR_ITS ---
PROCEDURE INFORMATION: Exam: XR Abdomen Exam date and time: 04/18/2024 11:40 AM Age: 78 years old Clinical indication: Constipation TECHNIQUE: Imaging protocol: Radiologic exam of the abdomen. Views: Frontal supine view of the abdomen. 1 View. COMPARISON: CT abdomen pelvis w con* [id number] 09/21/2021 12:48 AM FINDINGS: Nonobstructive bowel gas pattern with diffuse colonic stool/constipation. XR/XR KUB [id number] IMPRESSION: As above.
[2024-04-18 11:23] VITALS: BP 120/76; PULSE 98; RESP 18; TEMP 36.7; O2SAT 95; BMI 29.2
--- NOTE | 2024-04-18 11:40 | ED_ITS ---
HPI - General Adult General: Chief complaint: General Medical Stated complaint: constipation Time Seen by Provider: 04/18/24 11:26 Source: patient Mode of arrival: ambulatory Limitations: no limitations History of Present Illness: 78-year-old male states he had constipat ion the past states he has not had a bowel movement since Friday he denies any pain he denies any vomiting states he has tried an enema with no relief. Denies any worsening from factors this time Associated symptoms: Deny chest pain, dyspnea, headache(s), nausea, rash or vomiting Review of Systems Const: Denies: fever(s), chills, body aches or change in appetite ENMT: Denies: throat pain or dental pain Card: Denies: chest pain Resp: Denies: dyspnea GI: Reports: abdominal pain and constipation; Denies: nausea, vomiting or diarrhea : Denies: dysuria Musc: Denies: neck pain or back pain Skin/Breast: Denies: rash Neuro: Denies: headache(s) PFSH ED PFSH: Medical History Dyslipidemia BPH (benign prostatic hyperplasia) History of cataract PUD (peptic ulcer disease) History of anal fissures Hypertension Diabetes Prostate cancer Surgical History History of open reduction and internal fixation (ORIF) procedure right knee History of colonoscopy with polypectomy 07/2019 Family History Other CAD (coronary artery disease) Cancer Dementia Diabetes Denies family history of Psychiatric illness Chronic kidney disease (CKD) Lung disease Stroke Social History Smoking and tobacco/nicotine status: former use of tobacco/nicotine Physical Exam Const: COMMON NORMALS: no acute distress, patient oriented x3 and healthy appearing HENMT: COMMON NORMALS: normocephalic and atraumatic HEAD & SCALP: normocephalic and atraumatic Neck/C-Spine: COMMON NORMALS: full ROM and supple Chest: COMMONS NORMALS: normal inspection of the chest Resp: COMMON NORMALS: normal respiratory effort Cardio: COMMON NORMALS: regular rate, regular rhythm and No murmurs present (Cardio) RATE: regular rate RHYTHM: regular rhythm GI: COMMON NORMALS: Normal to inspection, nondistended, normoactive bowel sounds present, Soft to palpation, non-tender and no masses PALPATION: Yes Soft to palpation Extremity: COMMON NORMALS: normal to inspection and full ROM Neuro: COMMON NORMALS: patient oriented x3, moves all extremities and no focal motor deficits Psych: COMMON NORMALS: mental status grossly normal, Normal thought process present and cooperative THOUGHT PROCESS: Normal thought process present Skin: COMMON NORMALS: no rashes or lesions noted and no wounds GENERAL SKIN EXAM: no rashes or lesions noted Course Vital Signs: Vital signs: Vital Signs Temperature 98.1 F 04/18/24 11:23 Pulse Rate 85 04/18/24 13:24 Respiratory Rate 17 04/18/24 13:24 Blood Pressure 144/69 04/18/24 13:24 Pulse Oximetry 98 04/18/24 13:24 Oxygen Delivery Me thod Room Air 04/18/24 13:00 MDM - General Adult Medical Decision Making Patient presents here with constipation he did have a bowel movement here feels much improved he stable for discharge follow-up with PCP return if worsening. Medical Records I reviewed the patient's medical records. All radiology interpretation(s) finalized by discharge Discharge Plan Discharge Patient Disposition: Home Clinical Impression: Constipation Condition: Stable Prescriptions: No Action amlodipine 10 mg tablet 10 mg PO DAILY atorvastatin 40 mg tablet 40 mg PO DAILY hydrochlorothiazide 12.5 mg tablet 12.5 mg PO DAILY glimepiride 1 mg tablet 1 mg PO DAILY carvedilol 6.25 mg tablet 6.25 mg PO BID Rx Instructions: must administer with a meal/food tamsulosin 0.4 mg capsule 0.4 mg PO DAILY omeprazole 40 mg capsule,delayed release(DR/EC) 40 mg PO DAILY ipratropium bromide 0.02 % solution 2.5 ml inhalation Q6H PRN ketoconazole 2 % cream 1 applic topical BID Qty: 60 6RF Rx Instructions: Apply to red-scaly areas on face 1-2 times daily ciclopirox 0.77 % cream 1 applic topical BID 28 Days Qty: 90 0RF Rx Instructions: Apply to affected areas twice daily for 4 weeks then as needed for flares. clobetasol 0.05 % ointment 1 applic topical BID 14 Days Qty: 60 1RF Rx Instructions: Use for no more than 2 weeks per month. Not for use on face/skin folds. ketoconazole 2 % shampoo 1 applic topical ONCE Qty: 120 3RF Rx Instructions: Lather onto affected areas as body wash everyday for 4 weeks then one week per month thereafter. Celebrex 100 mg capsule 100 mg PO BID Qty: 20 0RF tramadol 50 mg tablet 50 mg PO Q8H PRN (Reason: pain (scale score 7-10)) Qty: 10 0RF Discharge Orders: Discharge ED (Routine); Ordered 04/18/24 Ordered By: Rhea Sheppard Referrals: Eliot Hou, [Primary Care Provider] - 4-7 days Discharge Diet: Advance as tolerated Discharge Activity: Resume usual activity Patient Instructions: Constipation (ED) Coding Level of Care Code ED Shipping And Receiving Supervisor for Viky Keith
[2024-04-18] MEDS: lactulose oral liq 20 gm/30 mL UDC 30 GM PO (11:59)
[2024-04-18 12:00] VITALS: BP 115/83; PULSE 80; O2SAT 95
[2024-04-18 13:00] VITALS: BP 121/87; PULSE 81; O2SAT 94
[2024-04-18 13:24] VITALS: BP 144/69; PULSE 85; RESP 17; O2SAT 98
== END 2024-04-18 13:28 | disposition home or self-care (01) ==
PROVIDERS: Emergency Provider Emergency Medicine; PCP Electrodiagnostic Medicine
DX: K59.00 Constipation, unspecified (principal); Z79.84 Long term (current) use of oral hypoglycemic drugs; Z87.891 Personal history of nicotine dependence; E78.5 Hyperlipidemia, unspecified; I10 Essential (primary) hypertension; E11.9 Type 2 diabetes mellitus without complications; Z85.46 Personal history of malignant neoplasm of prostate
CPT/HCPCS: 74018; 99283

== ENCOUNTER 2024-04-23 03:40 | Emergency (ER) | payer MEDICARE, OTHER, SELFPAY ==
[2024-04-23] VITALS (11 sets, daily range): BP systolic 123–159; BP diastolic 73–93; PULSE 70–902; RESP 15–16; TEMP 36.5; O2SAT 92–98; BMI 28.8
--- NOTE | 2024-04-23 04:03 | XRR_ITS ---
PROCEDURE INFORMATION: Exam: XR Abdomen Exam date and time: 04/23/2024 4:22 AM Age: 78 years old Clinical indication: Constipation; Prior surgery; Surgery date: 6+ months; Surgery type: Polypectomy; Additional info: Constipation, upper abd pain TECHNIQUE: Imaging protocol: Radiologic exam of the abdomen. Views: Frontal supine view of the abdomen. 1 View. COMPARISON: CR (ABDOMEN, ) 04/18/2024 11:40 AM FINDINGS: Gastrointestinal tract: Nonspecific bowel-gas pattern. Organs: Partially imaged prostate seeds. Vasculature: Vascular calcific disease. Bones/joints: No large obvious osseous abnormality. Other findings: Image quality is suboptimal secondary to poor penetration. XR/XR abdomen 1V* [id number] IMPRESSION: 1. Image quality is suboptimal secondary to poor penetration. 2. Nonspecific bowel-gas pattern.
[2024-04-23 04:16] LABS: Basophils % 0.1 %; Eosinophils # 0.2 10^3/uL (0.0-0.8); Eosinophils % 1.8 %; Lymphocytes % 8.2 %; Mean Corpuscular HGB Conc 34.9 g/dL (30-55); Mean Corpuscular Hemoglobin 31.6 pg (27-33); Mean Corpuscular Volume 90.5 fl (82-101); Monocytes # 0.7 10^3/uL (0.2-0.9); Monocytes % 5.3 %; Neutrophils # 10.76 10^3/uL (1.8-7.7); Neutrophils % 84.3 %; Nucleated Red Blood Cells % 0 %; Platelet Count 342 10^3/cmm (157-399); Red Blood Count 4.75 10^6/uL (3.85-5.65); Red Cell Distribution Width 13.2 % (12.1-15.1); White Blood Count 12.76 10^3/uL (3.29-11.43)
--- NOTE | 2024-04-23 04:19 | W.ED.ABDPA2 ---
Documented by User: Venkata Mcdonald DO 04/23/24 04:21 HPI - Abdominal Pain General: Chief Complaint: Abdominal Pain Stated Complaint: ABD Pain Time Seen by Provider: 04/23/24 03:41 History of Present Illness: Patient presents to the ER with complaints of upper abdominal pain. Started last night about 9:00 and has gotten progressively worse. Patient was here in ER a little while ago for constipation and was started on lactulose. Patient said he is took his first dose of lactulose yesterday. Patient normally does not have any abdominal pain like this. Patient does have a history of chronic constipation. Review of Systems General: Reports: 10 or more systems reviewed and unremarkable except in HPI and below PFSH ED PFSH: Medical History Dyslipidemia BPH (benign prostatic hyperplasia) History of cataract PUD (peptic ulcer disease) History of anal fissures Hypertension Diabetes Prostate cancer Surgical History History of open reduction and internal fixation (ORIF) procedure right knee History of colonoscopy with polypectomy 07/2019 Family History Other CAD (coronary artery disease) Cancer Dementia Diabetes Denies family history of Psychiatric illness Chronic kidney disease (CKD) Lung disease Stroke Social History Smoking and tobacco/nicotine status: former use of tobacco/nicotine Physical Exam Const: COMMON NORMALS: no acute distress, average body habitus, patient oriented x3, no limitations, healthy appearing, alert and well nourished Neck/C-Spine: COMMON NORMALS: no JVD Chest: COMMONS NORMALS: normal inspection of the chest and normal palpation of entire chest wall Resp: COMMON NORMALS: normal respiratory effort, No retractions, No use of accessory muscles and clear to auscultation bilaterally AUSCULTATION: clear to auscultation bilaterally Cardio: COMMON NORMALS: no JVD, regular rate, regular rhythm, S1 normal heart sound present, S2 normal heart sound present, No gallops present (Cardio), No clicks present (Cardio), No murmurs present (Cardio) and No rub (Cardio) RATE: regular rate RHYTHM: regular rhythm HEART SOUNDS: S1 normal heart sound present and S2 normal heart sound present GI: COMMON NORMALS: Normal to inspection, nondistended, normoactive bowel sounds present, Soft to palpation, No hepatosplenomegaly present and no masses; negative for non-tender (Mildly tender to palpate upper abdomen) PALPATION: Yes Soft to palpation and Yes No hepatosplenomegaly present Neuro: COMMON NORMALS: patient oriented x3 SENSORIUM/ORIENTATION: Yes alert Course Vital Signs: Vital signs: Vital Signs Temperature 97.7 F 04/23/24 03:43 Pulse Rate 83 04/23/24 09:30 Respiratory Rate 15 04/23/24 06:11 Blood Pressure 147/93 04/23/24 09:00 Pulse Oximetry 96 04/23/24 09:30 Oxygen Delivery Me thod Room Air 04/23/24 06:11 MDM - Abdominal Pain Differential Diagnosis Likely abdominal pain and constipation Medical Records I reviewed the patient's medical records. Lab Data I reviewed the patient's lab results. 04/23/24 03:46 04/23/24 03:46 Labs/Radiology: Radiology Impressions Abdomen X-Ray 04/23/24 04:03 IMPRESSION: 1. Image quality is suboptimal secondary to poor penetration. 2. Nonspecific bowel-gas pattern. Abdomen/Pelvis CT 04/23/24 04:41 IMPRESSION: 1. No acute findings in the abdomen/pelvis. 2. Minimal colonic stool burden. Laboratory Results WBC 12.76 10^3/uL (3.29-11.43) H 04/23/24 03:46 RBC 4.75 10^6/uL (3.85-5.65) 04/23/24 03:46 Hgb 15.00 g/dL (11.27-16.99) 04/23/24 03:46 Hct 43.0 % (37-53) 04/23/24 03:46 MCV 90.5 fl (82-101) 04/23/24 03:46 MCH 31.6 pg (27-33) 04/23/24 03:46 MCHC 34.9 g/dL (30-55) 04/23/24 03:46 RDW 13.2 % (12.1-15.1) 04/23/24 03:46 Plt Count 342 10^3/cmm (157-399) 04/23/24 03:46 MPV 9.0 fL (7.4-10.4) 04/23/24 03:46 Neut % (Auto) 84.3 % 04/23/24 03:46 Lymph % (Auto) 8.2 % 04/23/24 03:46 Rowan % (Auto) 5.3 % 04/23/24 03:46 Eos % (Auto) 1.8 % 04/23/24 03:46 Baso % (Auto) 0.1 % 04/23/24 03:46 Neut # (Auto) 10.76 10^3/uL (1.8-7.7) H 04/23/24 03:46 Lymph # (Auto) 1.0 10^3/uL (0.8-4.8) 04/23/24 03:46 Rowan # (Auto) 0.7 10^3/uL (0.2-0.9) 04/23/24 03:46 Eos # (Auto) 0.2 10^3/uL (0.0-0.8) 04/23/24 03:46 Baso # (Auto) 0.0 10^3/uL (0.0-0.1) 04/23/24 03:46 Nucleated RBC % (auto) 0 % 04/23/24 03:46 Nucleated RBCs # 0.0 /100WBC 04/23/24 03:46 Sodium 134 mmol/L (136-145) L 04/23/24 03:46 Potassium 3.1 mmol/L (3.5-5.1) L 04/23/24 03:46 Chloride 94 mmol/L (98-107) L 04/23/24 03:46 Carbon Dioxide 24 mmol/L (22-29) 04/23/24 03:46 Anion Gap 19.1 (5-19) H 04/23/24 03:46 BUN 28 mg/dL (8-23) H 04/23/24 03:46 Creatinine 1.3 mg/dL (0.7-1.2) H 04/23/24 03:46 GFR Calculation Not Reportable 04/23/24 03:46 Glucose 190 mg/dL (65-115) H 04/23/24 03:46 Calculated Osmolality 289 mOsm/kg (285-295) 04/23/24 03:46 Calcium 9.6 mg/dL (8.5-10.5) 04/23/24 03:46 Total Bilirubin 0.7 mg/dL (0.15-1.2) 04/23/24 03:46 AST 16 U/L (0-40) 04/23/24 03:46 ALT 20 U/L (0-41) 04/23/24 03:46 Alkaline Phosphatase 100 U/L (40-130) 04/23/24 03:46 Total Protein 8.0 g/dL (6.6-8.7) 04/23/24 03:46 Albumin 4.6 g/dL (3.5-5.2) 04/23/24 03:46 Globulin 3.4 g/dL (1.3-4.6) 04/23/24 03:46 Lipase 63 U/L (13-60) H 04/23/24 03:46 Urine Color Yellow (Yellow) 04/23/24 07:00 Urine Appearance Clear (CLEAR) 04/23/24 07:00 Urine pH 6.5 (5-7) 04/23/24 07:00 Ur Specific [place] 1.010 (1.005-1.030) 04/23/24 07:00 Urine Protein Neg (Negative) 04/23/24 07:00 Urine Glucose (UA) 1+ (Normal) H 04/23/24 07:00 Urine Ketones Negative (Negative) 04/23/24 07:00 Urine Blood Neg (Negative) 04/23/24 07:00 Urine Nitrate Negative (Negative) 04/23/24 07:00 Urine Bilirubin Neg (Negative) 04/23/24 07:00 Urine Urobilinogen Norm mg/dL (Negative) 04/23/24 07:00 Ur Leukocyte Esterase Negative (Negative) 04/23/24 07:00 All radiology interpretation(s) finalized by discharge Discharge Plan Discharge Patient Disposition: Home Clinical Impression: Abdominal pain Condition: Stable Prescriptions: No Action amlodipine 10 mg tablet 10 mg PO DAILY atorvastatin 40 mg tablet 40 mg PO DAILY glimepiride 1 mg tablet 0.5 mg PO DAILY carvedilol 6.25 mg tablet 6.25 mg PO BID Rx Instructions: must administer with a meal/food tamsulosin 0.4 mg capsule 0.4 mg PO DAILY omeprazole 40 mg capsule,delayed release(DR/EC) 40 mg PO DAILY ketoconazole 2 % cream 1 applic topical BID Qty: 60 6RF Rx Instructions: Apply to red-scaly areas on face 1-2 times daily ketoconazole 2 % shampoo 1 applic topical ONCE Qty: 120 3RF Rx Instructions: Lather onto affected areas as body wash everyday for 4 weeks then one week per month thereafter. hydrochlorothiazide 25 mg tablet 25 mg PO DAILY lactulose 10 gram/15 mL solution 15 ml PO DAILY PRN (Reason: Constipation) docusate sodium 100 mg Capsule 100 mg PO DAILY PRN (Reason: Constipation) Vitamin D3 25 mcg (1,000 unit) Tablet 25 mcg PO DAILY melatonin 5 mg Tablet 5 mg PO BEDTIME Metamucil 3.4 gram/5.4 gram Powder 1 tbsp PO DAILY PRN (Reason: Constipation) Rx Instructions: mix into at least 8 oz of water or juice before administering Discharge Orders: Discharge ED (Routine); Ordered 04/23/24 Ordered By: Matt Murphy Referrals: Eliot Hou DO [Primary Care Provider] - Discharge Diet: Usual diet Discharge Activity: Resume usual activity Patient Instructions: Abdominal Pain (ED), Opioid Safety, Pain Management Activity Restrictions/Additional Instructions: Thank you for choosing [facility] for your healthcare needs today. It is very important that you follow up as instructed or that you return to the Emergency Department should you have concerns or if your condition changes or worsens in any way. You were seen today for abdominal pain and cramping. CT did not show any acute abnormalities. Would recommend holding off on any further use of lactulose until you follow-up with your primary care doctor. Sign Out Sign Out Data: Patient Sign Out occurred on 04/23/24 at 06:45. Patient's care was discussed, and care was transferred from Venkata Mcdonald DO to Matt Murphy DO. Coding Level of Care Code ED Plastic Extrusion Operator for Chg Fwd Documented by User: Matt Murphy DO 04/23/24 09:45 HPI - Abdominal Pain General: Chief Complaint: Abdominal Pain Stated Complaint: ABD Pain Time Seen by Provider: 04/23/24 03:41 [facility] ED PFSH: Medical History Dyslipidemia BPH (benign prostatic hyperplasia) History of cataract PUD (peptic ulcer disease) History of anal fissures Hypertension Diabetes Prostate cancer Surgical History History of open reduction and internal fixation (ORIF) procedure right knee History of colonoscopy with polypectomy 07/2019 Family History Other CAD (coronary artery disease) Cancer Dementia Diabetes Denies family history of Psychiatric illness Chronic kidney disease (CKD) Lung disease Stroke Social History Smoking and tobacco/nicotine status: former use of tobacco/nicotine Course Vital Signs: Vital signs: Vital Signs Temperature 97.7 F 04/23/24 03:43 Pulse Rate 83 04/23/24 09:30 Respiratory Rate 15 04/23/24 06:11 Blood Pressure 147/93 04/23/24 09:00 Pulse Oximetry 96 04/23/24 09:30 Oxygen Delivery Me thod Room Air 04/23/24 06:11 MDM - Abdominal Pain Medical Decision Making Care assumed at change of shift CT does not show any acute pathologic findings this is mild elevation of white count he denies dysuria urgency or frequency. On the CT is a look like he might have some retained urine but on postvoid residual he is down to 173 mL post void. Urine was negative. I reviewed the history the patient a a lot of cramping after using lactulose he still having some cramping. Suspect that is a side effect of his medications. Recommend that he hold off on the lactulose and review his constipation regimen with Dr. Hou his primary care doctor. He does not have significant medic retained stool in the CT done in the emergency room today. Lab Data 04/23/24 03:46 04/23/24 03:46 Labs/Radiology: Radiology Impressions Abdomen X-Ray 04/23/24 04:03 IMPRESSION: 1. Image quality is suboptimal secondary to poor penetration. 2. Nonspecific bowel-gas pattern. Abdomen/Pelvis CT 04/23/24 04:41 IMPRESSION: 1. No acute findings in the abdomen/pelvis. 2. Minimal colonic stool burden. Laboratory Results WBC 12.76 10^3/uL (3.29-11.43) H 04/23/24 03:46 RBC 4.75 10^6/uL (3.85-5.65) 04/23/24 03:46 Hgb 15.00 g/dL (11.27-16.99) 04/23/24 03:46 Hct 43.0 % (37-53) 04/23/24 03:46 MCV 90.5 fl (82-101) 04/23/24 03:46 MCH 31.6 pg (27-33) 04/23/24 03:46 MCHC 34.9 g/dL (30-55) 04/23/24 03:46 RDW 13.2 % (12.1-15.1) 04/23/24 03:46 Plt Count 342 10^3/cmm (157-399) 04/23/24 03:46 MPV 9.0 fL (7.4-10.4) 04/23/24 03:46 Neut % (Auto) 84.3 % 04/23/24 03:46 Lymph % (Auto) 8.2 % 04/23/24 03:46 Rowan % (Auto) 5.3 % 04/23/24 03:46 Eos % (Auto) 1.8 % 04/23/24 03:46 Baso % (Auto) 0.1 % 04/23/24 03:46 Neut # (Auto) 10.76 10^3/uL (1.8-7.7) H 04/23/24 03:46 Lymph # (Auto) 1.0 10^3/uL (0.8-4.8) 04/23/24 03:46 Rowan # (Auto) 0.7 10^3/uL (0.2-0.9) 04/23/24 03:46 Eos # (Auto) 0.2 10^3/uL (0.0-0.8) 04/23/24 03:46 Baso # (Auto) 0.0 10^3/uL (0.0-0.1) 04/23/24 03:46 Nucleated RBC % (auto) 0 % 04/23/24 03:46 Nucleated RBCs # 0.0 /100WBC 04/23/24 03:46 Sodium 134 mmol/L (136-145) L 04/23/24 03:46 Potassium 3.1 mmol/L (3.5-5.1) L 04/23/24 03:46 Chloride 94 mmol/L (98-107) L 04/23/24 03:46 Carbon Dioxide 24 mmol/L (22-29) 04/23/24 03:46 Anion Gap 19.1 (5-19) H 04/23/24 03:46 BUN 28 mg/dL (8-23) H 04/23/24 03:46 Creatinine 1.3 mg/dL (0.7-1.2) H 04/23/24 03:46 GFR Calculation Not Reportable 04/23/24 03:46 Glucose 190 mg/dL (65-115) H 04/23/24 03:46 Calculated Osmolality 289 mOsm/kg (285-295) 04/23/24 03:46 Calcium 9.6 mg/dL (8.5-10.5) 04/23/24 03:46 Total Bilirubin 0.7 mg/dL (0.15-1.2) 04/23/24 03:46 AST 16 U/L (0-40) 04/23/24 03:46 ALT 20 U/L (0-41) 04/23/24 03:46 Alkaline Phosphatase 100 U/L (40-130) 04/23/24 03:46 Total Protein 8.0 g/dL (6.6-8.7) 04/23/24 03:46 Albumin 4.6 g/dL (3.5-5.2) 04/23/24 03:46 Globulin 3.4 g/dL (1.3-4.6) 04/23/24 03:46 Lipase 63 U/L (13-60) H 04/23/24 03:46 Urine Color Yellow (Yellow) 04/23/24 07:00 Urine Appearance Clear (CLEAR) 04/23/24 07:00 Urine pH 6.5 (5-7) 04/23/24 07:00 Ur Specific [place] 1.010 (1.005-1.030) 04/23/24 07:00 Urine Protein Neg (Negative) 04/23/24 07:00 Urine Glucose (UA) 1+ (Normal) H 04/23/24 07:00 Urine Ketones Negative (Negative) 04/23/24 07:00 Urine Blood Neg (Negative) 04/23/24 07:00 Urine Nitrate Negative (Negative) 04/23/24 07:00 Urine Bilirubin Neg (Negative) 04/23/24 07:00 Urine Urobilinogen Norm mg/dL (Negative) 04/23/24 07:00 Ur Leukocyte Esterase Negative (Negative) 04/23/24 07:00 Discharge Plan Discharge Patient Disposition: Home Clinical Impression: Abdominal pain Condition: Stable Prescriptions: No Action amlodipine 10 mg tablet 10 mg PO DAILY atorvastatin 40 mg tablet 40 mg PO DAILY glimepiride 1 mg tablet 0.5 mg PO DAILY carvedilol 6.25 mg tablet 6.25 mg PO BID Rx Instructions: must administer with a meal/food tamsulosin 0.4 mg capsule 0.4 mg PO DAILY omeprazole 40 mg capsule,delayed release(DR/EC) 40 mg PO DAILY ketoconazole 2 % cream 1 applic topical BID Qty: 60 6RF Rx Instructions: Apply to red-scaly areas on face 1-2 times daily ketoconazole 2 % shampoo 1 applic topical ONCE Qty: 120 3RF Rx Instructions: Lather onto affected areas as body wash everyday for 4 weeks then one week per month thereafter. hydrochlorothiazide 25 mg tablet 25 mg PO DAILY lactulose 10 gram/15 mL solution 15 ml PO DAILY PRN (Reason: Constipation) docusate sodium 100 mg Capsule 100 mg PO DAILY PRN (Reason: Constipation) Vitamin D3 25 mcg (1,000 unit) Tablet 25 mcg PO DAILY melatonin 5 mg Tablet 5 mg PO BEDTIME Metamucil 3.4 gram/5.4 gram Powder 1 tbsp PO DAILY PRN (Reason: Constipation) Rx Instructions: mix into at least 8 oz of water or juice before administering Discharge Orders: Discharge ED (Routine); Ordered 04/23/24 Ordered By: Matt Murphy Referrals: Eliot Hou DO [Primary Care Provider] - Discharge Diet: Usual diet Discharge Activity: Resume usual activity Patient Instructions: Abdominal Pain (ED), Opioid Safety, Pain Management Activity Restrictions/Additional Instructions: Thank you for choosing [facility] for your healthcare needs today. It is very important that you follow up as instructed or that you return to the Emergency Department should you have concerns or if your condition changes or worsens in any way. You were seen today for abdominal pain and cramping. CT did not show any acute abnormalities. Would recommend holding off on any further use of lactulose until you follow-up with your primary care doctor. Sign Out Sign Out Data: Patient Sign Out occurred on 04/23/24 at 06:45. Patient's care was discussed, and care was transferred from Venkata Mcdonald DO to Matt Murphy DO. Coding Level of Care Code ED Plastic Extrusion Operator for Viky Keith
[2024-04-23 04:27] LABS: Alanine Aminotransferase 20 U/L (0-41); Albumin Level 4.6 g/dL (3.5-5.2); Alkaline Phosphatase 100 U/L (40-130); Anion Gap 19.1 (5-19); Aspartate Amino Transferase 16 U/L (0-40); Blood Urea Nitrogen 28 mg/dL (8-23); Calcium 9.6 mg/dL (8.5-10.5); Carbon Dioxide 24 mmol/L (22-29); Chloride 94 mmol/L (98-107); Creatinine Clr Calc Pharmacy 62.9806; Globulin 3.4 g/dL (1.3-4.6); Glucose 190 mg/dL (65-115); Lipase 63 U/L (13-60); Osmolality Calculated 289 mOsm/kg (285-295); Potassium 3.1 mmol/L (3.5-5.1); Sodium 134 mmol/L (136-145); Total Bilirubin 0.7 mg/dL (0.15-1.2)
--- NOTE | 2024-04-23 04:41 | CTR_ITS ---
PROCEDURE INFORMATION: Exam: CT Abdomen And Pelvis Without Contrast Exam date and time: 04/23/2024 4:52 AM Age: 78 years old Clinical indication: Abdominal pain; Prior surgery; Surgery date: 6+ months; Surgery type: Polypectomy; Additional info: Upper abd pain, constipation TECHNIQUE: Imaging protocol: Computed tomography of the abdomen and pelvis without contrast. Radiation optimization: All CT scans at this facility use at least one of these dose optimization techniques: automated exposure control; mA and/or kV adjustment per patient size (includes targeted exams where dose is matched to clinical indication); or iterative reconstruction. COMPARISON: CT abdomen pelvis w con* [id number] 09/21/2021 12:48 AM RADIATION DOSE METRICS: Total DLP (mGy-cm): 979.4 FINDINGS: Lungs: Visualized lung bases are clear. Liver: The liver is unremarkable. Gallbladder and biliary ducts: The gallbladder is unremarkable. No biliary ductal dilatation. Pancreas: Moderate to severe atrophy of the pancreas. No pancreatic ductal dilation. Spleen: The spleen is unremarkable. Adrenal glands: The adrenal glands are unremarkable. Kidneys and ureters: [id number] bilateral renal atrophy. No hydronephrosis or hydroureter. No evidence of renal stones. Stomach and bowel: Nonobstructive bowel-gas pattern. Minimal scattered colonic diverticulosis. No CT evidence of acute diverticulitis. Minimal colonic stool burden. Appendix: The appendix is normal. Intraperitoneal space: No significant free fluid in the abdomen or pelvis. Vasculature: Moderate calcific disease of the abdominal aorta and its major branches. No abdominal aortic aneurysm. Lymph nodes: No pathologically enlarged lymphadenopathy. Urinary bladder: Multiple small bladder wall diverticula. Reproductive: Numerous prostate seeds noted about the prostate. Bones/joints: Multilevel spondylosis. No acute osseous findings. Soft tissues: Small fat containing left inguinal hernia. CT/CT abdomen pelvis wo con [id number] IMPRESSION: 1. No acute findings in the abdomen/pelvis. 2. Minimal colonic stool burden.
[2024-04-23] MEDS: lidocaine 2% viscous 15 ML, aluminum-mag hydrox-simethicon 30 ML, sucralfate oral liq 1 GM PO (05:42)
[2024-04-23 08:55] LABS: Add Urine Microscopic? NO; Charge for UA Resulting for Rev
[2024-04-23 09:05] LABS: Bilirubin Urine Neg (Negative); Blood Urine Neg (Negative); Glucose Urine UA 1+ (Normal); Ketones Urine Negative (Negative); Leukocyte Esterase Urine Negative (Negative); Nitrate Urine Negative (Negative); Protein Urine Neg (Negative); Urine Appearance Clear (CLEAR); Urine Color Yellow (Yellow); Urobilinogen Urine Norm (Negative); pH Urine 6.5 (5-7)
== END 2024-04-23 09:59 | disposition home or self-care (01) ==
PROVIDERS: Emergency Medicine; Emergency Provider Family Medicine; PCP Electrodiagnostic Medicine
DX: R10.9 Unspecified abdominal pain (principal); R10.10 Upper abdominal pain, unspecified; Z79.84 Long term (current) use of oral hypoglycemic drugs; Z87.891 Personal history of nicotine dependence; E78.5 Hyperlipidemia, unspecified; I10 Essential (primary) hypertension; E11.9 Type 2 diabetes mellitus without complications; Z85.46 Personal history of malignant neoplasm of prostate
CPT/HCPCS: 51798; 74018; 74176; 80053; 81003; 83690; 85025; 99284

== ENCOUNTER → 2024-08-10 15:37 | Outpatient (BNVA) | payer MEDICARE, OTHER, SELFPAY | PROVIDERS: PCP Electrodiagnostic Medicine; Referring Provider Electrodiagnostic Medicine; Visit Provider Psychiatry & Neurology Neurology | DX: M79.642 Pain in left hand (principal); M25.532 Pain in left wrist | CPT/HCPCS: 95911 ==

== ENCOUNTER → 2024-12-09 13:29 | Outpatient (BNVA) | payer MEDICARE, OTHER, SELFPAY | PROVIDERS: PCP Electrodiagnostic Medicine; Visit Provider Nurse Practitioner Family | DX: L30.0 Nummular dermatitis (principal); L21.8 Other seborrheic dermatitis; L57.8 Other skin changes due to chronic exposure to nonionizing radiation; L85.3 Xerosis cutis; D69.2 Other nonthrombocytopenic purpura; L82.1 Other seborrheic keratosis; S50.911A Unspecified superficial injury of right forearm, initial encounter; X58.XXXA Exposure to other specified factors, initial encounter | CPT/HCPCS: 99214 ==

== ENCOUNTER 2025-02-19 17:31 | Emergency (ER) | payer MEDICARE, OTHER, SELFPAY ==
[2025-02-19 17:32] VITALS: BP 146/60; PULSE 97; RESP 14; TEMP 36.4; O2SAT 96
--- NOTE | 2025-02-19 17:38 | CTR_ITS ---
PROCEDURE INFORMATION: Exam: CT Head Without Contrast Exam date and time: 02/19/2025 5:51 PM Age: 79 years old Clinical indication: Injury or trauma; Fall; Bleeding/hemorrhage and laceration; Without loss of consciousness; Without residual foreign body; Forehead; Additional info: Trauma, facial contusion TECHNIQUE: Imaging protocol: Computed tomography of the head without contrast. Radiation optimization: All CT scans at this facility use at least one of these dose optimization techniques: automated exposure control; mA and/or kV adjustment per patient size (includes targeted exams where dose is matched to clinical indication); or iterative reconstruction. COMPARISON: CT facial bones wo con* [id number] 02/19/2025 5:51 PM RADIATION DOSE METRICS: Total DLP (mGy-cm): 1247.6 FINDINGS: Brain: No hemorrhage. No edema. Advanced diffuse cerebral atrophy and mild sequela of chronic small vessel ischemic disease. No mass effect. Cerebral ventricles: No ventriculomegaly. Paranasal sinuses: Visualized sinuses are unremarkable. No fluid levels. Mastoid air cells: Visualized mastoid air cells are well aerated. Bones: Unremarkable. No acute fracture. Soft tissues: Forehead laceration. CT/CT head wo con* [id number] IMPRESSION: No acute intracranial abnormality.
--- NOTE | 2025-02-19 17:38 | CTR_ITS ---
PROCEDURE INFORMATION: Exam: CT Maxillofacial Without Contrast Exam date and time: 02/19/2025 5:51 PM Age: 79 years old Clinical indication: Injury or trauma; Fall; Blunt trauma (contusions or hematomas) and laceration; Forehead; Not specified TECHNIQUE: Imaging protocol: Computed tomography of the face without contrast. Radiation optimization: All CT scans at this facility use at least one of these dose optimization techniques: automated exposure control; mA and/or kV adjustment per patient size (includes targeted exams where dose is matched to clinical indication); or iterative reconstruction. COMPARISON: CT head wo con* [id number] 02/19/2025 5:51 PM RADIATION DOSE METRICS: Total DLP (mGy-cm): 542.1 FINDINGS: Paranasal sinuses: No air-fluid levels. Orbital cavities: Orbits are normal. Globes are unremarkable. Bones: No acute fracture. Soft tissues: Forehead laceration. CT/CT facial bones wo con* [id number] IMPRESSION: No acute osseous abnormalities.
--- NOTE | 2025-02-19 17:40 | W.ED.HEATRA ---
HPI - Head Injury General: Chief complaint: Head Injury Stated complaint: forehead lac s/p fall Time Seen by Provider: 02/19/25 17:33 History of Present Illness: Patient is a generally well-appearing 79-year-old man who admits to drinking some this afternoon and fell forward and struck his face on the ground. He has a laceration on his forehead noted on his nose. He denies losing consciousness and has not vomited since this happened. He is speaking clearly and making jokes and has no other acute complaints. He describes 3 of 10 pain which is worse when you press on his lacerations. He is uncertain whether he takes blood thinners or not. He denies chest pain, lightheadedness, shortness of breath, recent sickness or fever. Related Data Home Medications ?Medication ?Instructions ?Recorded ?Confirmed amlodipine 10 mg tablet 10 mg PO DAILY 05/29/21 08/10/24 atorvastatin 40 mg tablet 40 mg PO DAILY 05/29/21 08/10/24 carvedilol 6.25 mg tablet 6.25 mg PO BID 05/29/21 08/10/24 glimepiride 1 mg tablet 0.5 mg PO DAILY 05/29/21 08/10/24 omeprazole 40 mg capsule,delayed 40 mg PO DAILY 05/29/21 08/10/24 release tamsulosin 0.4 mg capsule 0.4 mg PO DAILY 05/29/21 08/10/24 cholecalciferol (vitamin D3) 25 25 mcg PO DAILY 04/23/24 08/10/24 mcg (1,000 unit) tablet (Vitamin D3) docusate sodium 100 mg capsule 100 mg PO DAILY PRN Constipation 04/23/24 08/10/24 hydrochlorothiazide 25 mg tablet 25 mg PO DAILY 04/23/24 08/10/24 lactulose 10 gram/15 mL oral 15 ml PO DAILY PRN Constipation 04/23/24 08/10/24 solution melatonin 5 mg tablet 5 mg PO BEDTIME 04/23/24 08/10/24 psyllium husk 3.4 gram/5.4 gram 1 tbsp PO DAILY PRN Constipation 04/23/24 08/10/24 oral powder (Metamucil) Previous Rx's ?Medication ?Instructions ?Recorded ketoconazole 2 % topical cream 1 applic topical BID #60 grams 12/10/22 ketoconazole 2 % shampoo 1 applic topical ONCE #120 mL 04/11/23 Allergies Allergy/AdvReac Type Severity Reaction Status Date / Time [place] Inhibitors Allergy ALGY-Anaphy Verified 08/10/24 17:13 laxis PFSH ED PFSH: Medical History Dyslipidemia BPH (benign prostatic hyperplasia) History of cataract PUD (peptic ulcer disease) History of anal fissures Hypertension Diabetes Prostate cancer Surgical History History of open reduction and internal fixation (ORIF) procedure right knee History of colonoscopy with polypectomy 07/2019 Family History Other CAD (coronary artery disease) Cancer Dementia Diabetes Denies family history of Psychiatric illness Chronic kidney disease (CKD) Lung disease Stroke Social History Smoking and tobacco/nicotine status: former use of tobacco/nicotine Physical Exam Const: COMMON NORMALS: no acute distress, patient oriented x3 and alert HENMT: COMMON NORMALS: normocephalic (4 cm curvilinear laceration of the forehead between the eyebrows) HEAD & SCALP: normocephalic (4 cm curvilinear laceration of the forehead between the eyebrows) HEAD IMAGES:  1. 2. NOSE: Abnormal external nose present nasal laceration (1.5 cm on the bridge) and Other nasal findings present (No septal hematoma or mobility of the nasal bones) OTHER: 1.5 cm linear laceration atop the bridge of the nose Eye: COMMON NORMALS: Equal, round and reactive pupils present, EOMs intact bilaterally and no scleral icterus PUPIL: Yes Equal, round and reactive pupils present Resp: COMMON NORMALS: normal respiratory effort and No retractions Cardio: COMMON NORMALS: regular rate, regular rhythm and No murmurs present (Cardio) RATE: regular rate RHYTHM: regular rhythm GI: COMMON NORMALS: Normal to inspection, nondistended, normoactive bowel sounds present, Soft to palpation and non-tender PALPATION: Yes Soft to palpation Neuro: COMMON NORMALS: patient oriented x3 SENSORIUM/ORIENTATION: Yes alert Procedures Laceration Laceration 1: Site: face Size (cm): 8 Amount of anesthesia used (mL): 5 Pre-repair: wound explored, irrigated extensively and deep structures intact Size (cm): 5-0 Number of sutures: 7 Technique: simple, interrupted Course Vital Signs: Vital signs: Vital Signs Temperature 97.5 F L 02/19/25 17:32 Pulse Rate 89 02/19/25 19:25 Respiratory Rate 14 02/19/25 17:32 Blood Pressure 134/82 02/19/25 19:25 Pulse Oximetry 96 02/19/25 19:25 Oxygen Delivery Me thod Room Air 02/19/25 17:32 MDM - Head Injury Medcial Decision Making In summary, patient is a generally well-appearing 79-year-old male seen for facial contusion and laceration subsequent to falling. CT brain shows nothing acute. CT facial bones shows nondisplaced nasal bone fractures which will not need intervention. Lacerations were sutured using 5-0 nylon which will need to be removed in roughly 7 to 10 days and referral was placed to his primary care for this to occur. He will be discharged in stable improved condition with a short course of pain medication. Lab Data Radiology Impressions Face CT 02/19/25 17:38 IMPRESSION: No acute osseous abnormalities. Head CT 02/19/25 17:38 IMPRESSION: No acute intracranial abnormality. All radiology interpretation(s) finalized by discharge Discharge Plan Discharge Patient Disposition: Home Clinical Impression: Contusion of face, Complex laceration of forehead, Laceration of nose, Fall from standing Condition: Stable Prescriptions: No Action amlodipine 10 mg tablet 10 mg PO DAILY atorvastatin 40 mg tablet 40 mg PO DAILY glimepiride 1 mg tablet 0.5 mg PO DAILY carvedilol 6.25 mg tablet 6.25 mg PO BID Rx Instructions: must administer with a meal/food tamsulosin 0.4 mg capsule 0.4 mg PO DAILY omeprazole 40 mg capsule,delayed release(DR/EC) 40 mg PO DAILY ketoconazole 2 % cream 1 applic topical BID Qty: 60 6RF Rx Instructions: Apply to red-scaly areas on face 1-2 times daily ketoconazole 2 % shampoo 1 applic topical ONCE Qty: 120 3RF Rx Instructions: Lather onto affected areas as body wash everyday for 4 weeks then one week per month thereafter. hydrochlorothiazide 25 mg tablet 25 mg PO DAILY lactulose 10 gram/15 mL solution 15 ml PO DAILY PRN (Reason: Constipation) docusate sodium 100 mg Capsule 100 mg PO DAILY PRN (Reason: Constipation) Vitamin D3 25 mcg (1,000 unit) Tablet 25 mcg PO DAILY melatonin 5 mg Tablet 5 mg PO BEDTIME Metamucil 3.4 gram/5.4 gram Powder 1 tbsp PO DAILY PRN (Reason: Constipation) Rx Instructions: mix into at least 8 oz of water or juice before administering Discharge Orders: Discharge ED (Routine); Ordered 02/19/25 Ordered By: Bernabe Silva Referrals: Eliot Hou DO [Primary Care Provider] - 7-10 days (suture removal) Discharge Diet: Usual diet Discharge Activity: Increase activity as tolerated Patient Instructions: Facial Laceration (ED) Print Language: Scottish Coding Level of Care Code ED [place] Alarm Operator for Viky Keith
[2025-02-19] MEDS: lidocaine-epi 1% 20 mL INJ 10 ML INJECTION (18:27)
[2025-02-19] MEDS: tetanus-dipt-pertussis 0.5 mL SDV IM (19:11)
[2025-02-19] MEDS: bacitracin ointment Pkt 1 EACH TOPICAL (19:12)
[2025-02-19 19:25] VITALS: BP 134/82; PULSE 89; O2SAT 96
== END 2025-02-19 19:27 | disposition home or self-care (01) ==
PROVIDERS: Emergency Provider Student in an Organized Health Care Education/Training Program; PCP Electrodiagnostic Medicine
DX: S01.81XA Laceration without foreign body of other part of head, initial encounter (principal); S01.21XA Laceration without foreign body of nose, initial encounter; W19.XXXA Unspecified fall, initial encounter; Z87.891 Personal history of nicotine dependence; E11.9 Type 2 diabetes mellitus without complications; I10 Essential (primary) hypertension; E78.5 Hyperlipidemia, unspecified; Z85.46 Personal history of malignant neoplasm of prostate; Z23 Encounter for immunization
CPT/HCPCS: 12015; 70450; 70486; 90471; 90715; 99284; J9999